=== PATIENT | female | born 1975 | race Caucasian/White ===

== ENCOUNTER 2020-06-05 10:52 | Emergency (ER) | payer OTHER, MEDICARE ==
[~2020-06-05 10:52] MED LIST: AMBIEN10 MG PO; AMITRIPTYLINE100 MG PO; ANTIVERT25 MG PO; BENADRYL25 MG PO; CIPRO500 MG PO; DILAUDID8 MG PO; ELAVIL10 MG PO; FIORICET1 EACH PO; FLEXERIL10 MG PO; IBUPROFEN800 MG PO; KLONOPIN1 MG PO; LASIX20 MG PO; MAXALT MLT10 MG PO; MICRO-K10 MEQ PO; PERCOCET 10/321 EACH PO; PHENERGAN25 M1 PO; PROTONIX 40MG T40 MG PO; PROZAC40 MG PO; REGLAN10 MG PO; SYMBICORT 80-10.2 GM INH; TESSALON PERLE100 M1 PO; VITAMIN D2000 UNI1 PO; ZESTORETIC 10-1 EACH PO; ZOLOFT100 MG PO
== END 2020-06-05 14:29 | disposition home or self-care (01) ==
LOC: FER 10:52
DX: S13.4XXA Sprain of ligaments of cervical spine, initial encounter (principal); S86.212A Strain of muscle(s) and tendon(s) of anterior muscle group at lower leg level, left leg, initial encounter; S80.12XA Contusion of left lower leg, initial encounter; R51.9 Headache, unspecified; M50.321 Other cervical disc degeneration at C4-C5 level; Z85.3 Personal history of malignant neoplasm of breast; Z85.42 Personal history of malignant neoplasm of other parts of uterus; Z92.21 Personal history of antineoplastic chemotherapy; W17.89XA Other fall from one level to another, initial encounter; Y92.830 Public park as the place of occurrence of the external cause
CPT/HCPCS: 70450; 72125; 73552; 73564; 73590; 96372; J1170; J2550

== ENCOUNTER 2021-04-13 18:54 | Emergency (ER) | payer OTHER, MEDICARE ==
[2021-04-13] MEDS ORDERED: MEDROL 4MG DOSEP4 MG PO (22:07)
[2021-04-13] MEDS ORDERED: CYCLOBENZAPRINE10 MG PO (22:07)
[2021-04-13] MEDS ORDERED: IBUPROFEN800 MG PO (22:07)
[2021-04-13] MEDS ORDERED: PERCOCET 5-3251 EACH PO (22:07)
== END 2021-04-13 22:35 | disposition home or self-care (01) ==
LOC: FER 18:54
DX: S46.811A Strain of other muscles, fascia and tendons at shoulder and upper arm level, right arm, initial encounter (principal); S44.8X1A Injury of other nerves at shoulder and upper arm level, right arm, initial encounter; I10 Essential (primary) hypertension; Z88.2 Allergy status to sulfonamides; V49.40XA Driver injured in collision with unspecified motor vehicles in traffic accident, initial encounter; Y92.410 Unspecified street and highway as the place of occurrence of the external cause
CPT/HCPCS: 70450; 71250; 72125; 73030; 73060; 73080; 96372; J1170; J2550

== ENCOUNTER 2021-04-15 08:47 | Emergency (ER) | payer OTHER, MEDICARE ==
[~2021-04-15 08:47] MED LIST changes: +CYCLOBENZAPRINE10 MG PO; +MEDROL 4MG DOSEP4 MG PO; +PERCOCET 5-3251 EACH PO
== END 2021-04-15 12:08 | disposition home or self-care (01) ==
LOC: FER 08:47
DX: G43.909 Migraine, unspecified, not intractable, without status migrainosus (principal); M54.12 Radiculopathy, cervical region; I10 Essential (primary) hypertension; Z88.2 Allergy status to sulfonamides
CPT/HCPCS: J0780; J1100; J1170; J1200; J1885; J2405; J2550; J7030

== ENCOUNTER → 2021-11-02 | Day surgery (SDC) | payer OTHER, MEDICARE ==
[~2021-11-02] VITALS: Ht 170.2 cm; Wt 97.5 kg
[~2021-11-02] MED LIST changes: +AMPHETAMINE SAL15 MG PO; +BRIN20TA PO; +CARVEDILOL25 MG PO; +CYANOCOBAL1000 MCG/1 IM; +ELAVIL25 MG PO; +LAMOTRIGINE25 MG PO; +OXYCODONE-ACET1 EACH PO; +VITAMIN D-40010 MCG PO; -VITAMIN D2000 UNI1 PO; +XANAX0.25 MG PO
[2021-11-02 09:20] LABS: PROTHROMBIN TIME 12.6 SECONDS (11.8-13.4); PTT 25.5 SECONDS (24.4-34.7)
== END | disposition home or self-care (01) ==
LOC: FAS 08:43
PROVIDERS: Surgery
DX: D64.9 Anemia, unspecified (principal); I10 Essential (primary) hypertension; G47.33 Obstructive sleep apnea (adult) (pediatric); F41.9 Anxiety disorder, unspecified; Z88.2 Allergy status to sulfonamides; Z79.899 Other long term (current) drug therapy; Z87.891 Personal history of nicotine dependence; Z80.0 Family history of malignant neoplasm of digestive organs
CPT/HCPCS: 36415; 85610; 85730; J1885; J2250; J2550; J2704; J7120